=== PATIENT | female | born 1955 | race Caucasian/White ===

== ENCOUNTER → 2018-12-10 | Outpatient (CLI) | payer BC ==
--- NOTE | 2018-12-11 01:15 | REP ---
Clinical: Dyspnea . Comparison: None . Technique: PA and lateral. Findings: The mediastinum and cardiac silhouette are normal. The lung ty are clear and without acute consolidation, effusion, or pneumothorax. The skeletal structures are intact and normal. Impression: 1. No acute cardiopulmonary process. Electronically Signed by Neno Jonas MD 12/11/2018 01:07 A
== END ==
LOC: M SMT 13:37
PROVIDERS: ATTEND Physician Assistant
DX: R06.00 Dyspnea, unspecified (principal)

== ENCOUNTER → 2019-02-16 | Outpatient (CLI) | payer BC ==
[~2019-02-16] MED LIST: METHACHOLINE KIT (J7674) INH ONE
--- NOTE | 2019-02-16 11:50 | PFTRPT ---
Height: 68.00 Inches Weight: 270.00 Lbs BSA: 2.32 Diagnosis: R06 DATE OF PROCEDURE: 02/16/2019 ORDERED BY: Teja Brown PA-C INTERPRETATION: Study of excellent technical quality. Under protocol, methacholine was administered. At a dose of 0.25 mg or 1.375 CDUs, a 25% decline in the FEV1 was noted. PC of 0.09 is significant. Flow rates did return to baseline post bronchodilator administration. IMPRESSION: Positive methacholine challenge study. MTDD
== END ==
LOC: M CARPUL 10:47
PROVIDERS: ATTEND Physician Assistant
DX: R06.00 Dyspnea, unspecified (principal)